=== PATIENT | female | born 1980 | race Caucasian/White ===

== ENCOUNTER 2018-05-16 07:39 | Inpatient (IN) | payer MEDICAID, OTHER ==
[2018-05-16 09:03] LABS: Basophils % (Auto) 0.4 % (0.0-1.8); Eosinophils # (Auto) 0.1 K/mm3 (0.0-0.4); Eosinophils % (Auto) 1.2 % (0.0-4.3); Hematocrit 34.8 % (30.3-42.9); Hemoglobin 11.9 gm/dl (10.1-14.3); Lymphocytes % (Auto) 27.4 % (13.4-35.0); Mean Corpuscular HGB Conc 34 % (30-34); Mean Corpuscular Volume 88 fl (79-97); Monocytes # (Auto) 0.4 K/mm3 (0.0-0.8); Monocytes % (Auto) 5.7 % (0.0-7.3); Platelet Count 173 K/mm3 (140-440); Red Blood Count 3.96 M/mm3 (3.65-5.03); Red Cell Distribution Width 15.2 % (13.2-15.2)
[2018-05-16] MEDS ORDERED: SUBLIMAZE IV PRN (10:26)
[2018-05-16] MEDS ORDERED: NARCAN 0.4 MG/1 ML IV PRN (10:26)
[2018-05-16] MEDS ORDERED: BRETHINE IVP PRN (10:26)
[2018-05-16] MEDS ORDERED: XYLOCAINE 2% INFILTRATI ONE (10:26)
[2018-05-16] MEDS ORDERED: ZOFRAN IV PRN ×2 (10:26→12:53)
[2018-05-16] MEDS ORDERED: BRETHINE SUB-Q PRN (10:26)
--- NOTE | 2018-05-16 10:36 | History and Physical Report ---
History of Present Illness Date of examination: 05/16/18 Date of admission: 05/16/18 09:14 Chief complaint: Intense labor pains History of present illness: 37 yo Fe , ALEENA 05/21/2018, 39weeks 2 days (US) presents with intense labor pains in active labor. Pt initiated early care with [facility] at 11+ weeks (Records available for review). risk include AMA, Anemia (FeS04 BID), and maternal obesity. She is O positive, rubella Immune, GBS Negative. Past History Past Medical History: no pertinent history Past Surgical History: D&C (2012: [facility] ) [employer] [employer] History: denies: abnormal PAP smear, chlamydia, gonorrhea, hepatitis B, hepatitis C, herpes, HIV, syphilis, trichomonas Family/Genetic History: none Social history: no significant social history, single, lives with family, full code. denies: smoking, alcohol abuse, prescription drug abuse, IV drug use - Obstetrical History Expected Date of Delivery: 05/21/18 Actual Gestation: 39 Week(s) 2 Day(s) : 5 Para: 3 Hx # Term Pregnancies: 3 Number of Pregnancies: 0 Spontaneous Abortions: 0 Induced : 0 ([facility] in 2011 (D&C)) Number of Living Children: 3 #1 Infant Gender: Male year: 2,005 Birthweight: 2.268 kg Method of Delivery: Vaginal Gestational age at delivery: 40 Complications: none #2 Infant Gender: Female year: 2,009 Birthweight: 3.629 kg Method of Delivery: Vaginal Gestational age at delivery: 40 Complications: none #3 Infant Gender: Female year: 2,011 Birthweight: 3.629 kg Method of Delivery: Vaginal Gestational age at delivery: 40 Complications: none Medications and Allergies Allergies Allergy/AdvReac Type Severity Reaction Status Date / Time No Known Allergies Allergy Unverified 05/13/18 03:14 Home Medications Medication Instructions Recorded Confirmed Last Taken Type No Known Home Medications [No 05/16/18 05/16/18 Unknown History Reported Home Medications] Review of Systems Cardiovascular: no chest pain, no shortness of breath Respiratory: no shortness of breath Breasts: normal Gastrointestinal: no nausea, no vomiting, no diarrhea, no constipation Genitourinary: normal appearance, contractions, no vaginal bleeding, no leakage of fluid, no genital sores Integumentary: no rash, no sores, no lesions - Vital Signs Vital signs: Vital Signs Pulse BP 81 104/68 05/16/18 07:52 05/16/18 07:52 Temp Pulse Resp BP Pulse Ox 98.5 F 83 18 100/66 98 05/16/18 08:00 05/16/18 08:43 05/16/18 08:00 05/16/18 08:22 05/16/18 08:43 - Physical Exam Breasts: Positive: normal Cardiovascular: Regular rate, Normal S1, Normal S2, No murmurs Lungs: Positive: Clear to auscultation, Normal air movement Abdomen: Positive: normal appearance, soft. Negative: distention Genitourinary (Female): Positive: normal external genitalia, normal perenium Vulva: both: normal Vagina: Positive: normal moisture Uterus: Positive: enlarged (S=D) Anus/Rectum: Positive: normal perianal skin Extremities: Positive: normal Deep Tendon Reflex Grade: Normal +2 - Obstetrical FHR: auscultation normal, category 1 Uterine Contraction Monitor Mode: External Cervical Dilatation: 6 (AROM, lg amt clear fluid) Cervical Effacement Percentage: 75 station: -1 Uterine Contraction Frequency (min): q 5 min Uterine Contraction Duration: 90-110 Uterine Contraction Pattern: Regular Uterine Tone Measurement Phase: Resting Uterine Contraction Intensity: Moderate Results Result Diagrams: 05/16/18 08:50 All other labs normal. Assessment and Plan A: AMA 37yo Term IUP at 39w2d Active labor Category 1 tracing GBS Negative P: Admit to L&D; Routine orders Pitocin Augmentation May have IV pain med/epidural if desires Anticipate
[2018-05-16] MEDS ORDERED: PITOCin/NS 20 UNIT/1000ML DRIP 20 UNITS/1,000 ML BAG IV SCH (11:00)
[2018-05-16] MEDS ORDERED: LACTATED RINGERS 1,000 ML IV SCH (11:00)
[2018-05-16] MEDS ORDERED: PITOCin/NS 30 UNIT/500ML 30 UNITS/500 ML BAG IV SCH (11:00)
[2018-05-16] MEDS ORDERED: NORCO 5/325 PO PRN (12:53)
[2018-05-16] MEDS ORDERED: DULCOLAX PR PRN (12:53)
[2018-05-16] MEDS ORDERED: TYLENOL PO PRN (12:53)
[2018-05-16] MEDS ORDERED: MILK OF MAGNESIA PO PRN (12:53)
[2018-05-16] MEDS ORDERED: TUCKS PAD TP PRN (12:53)
[2018-05-16] MEDS ORDERED: LANSINOH TP PRN (12:53)
[2018-05-16] MEDS ORDERED: BENADRYL PO PRN (12:53)
[2018-05-16] MEDS ORDERED: SODIUM CHLORIDE FLUSH SYRINGE 10 ML IV NR (13:00)
--- NOTE | 2018-05-16 13:10 | Procedure Note ---
OB Delivery Note - Delivery Date of Delivery: 05/16/18 (11:42) Surgeon: NARGIS WHITING (IZABELA) Estimated blood loss: 200cc - Vaginal Delivery presentation: vertex Delivery position: OA Intrapartum events: none Delivery induction: none Delivery augmentation: rupture of membranes, pitocin Delivery monitor: external FHT, external uterine Route of delivery: (11:42) Delivery placenta: spontaneous (11:46) Delivery cord: 3 umbilical vessels Delivery laceration: none Anesthesia: intravenous (Fentanyl x 1 dose) Delivery comments: To room immediately following nurse delivery of viable female at 11:42. [id number] on mothers abdomen upon entering room. Strong lusty cry noted. Cord clamped then cut by FOB with guidance. Cord blood collected per protocol. Spontaneous velazquez delivery of intact placenta at 11:46. Fundus massaged Firm@U-2. Perineum inspected. No tears or lacerations. Bleeding small. and mother left in stable condition in L&D. EBL 200ml. Placenta discarded. - A at 1 minute: 8 at 5 minutes: 9 Gender: Female (3792 grams, 8lbs 6oz, 20")
[2018-05-16] MEDS: IBUPROFEN PO SCH ×2 (15:17→23:52)
[2018-05-17 01:32] LABS: Hematocrit 31.5 % (30.3-42.9); Hemoglobin 10.5 gm/dl (10.1-14.3)
[2018-05-17] MEDS: IBUPROFEN PO SCH ×4 (05:56→23:48)
[2018-05-17] MEDS ORDERED: FEOSOL PO ONE (09:48)
--- NOTE | 2018-05-17 09:48 | Progress Note ---
Assessment and Plan A: PPD#1 s/p Mild Anemia P: Iron therapy supplementation Anticipate Discharge tomorrow LIANNE Cheng/Ni Pollock CNM Subjective - Subjective Date of service: 05/17/18 Principal diagnosis: PPD#1 s/p Patient reports: appetite normal, voiding normally, ambulating normally, no dizzy ambulation, no flatus, no bowel movement, no nauseated : doing well Objective - Vital Signs Latest vital signs: Vital Signs Temp Pulse Resp BP BP Pulse Ox 05/17/18 08:18 97.9 F 69 20 93/55 05/17/18 01:04 98.2 F 73 18 86/47 98 05/16/18 21:08 98.7 F 69 18 98/59 99 05/16/18 16:25 98.2 F 80 18 99/49 05/16/18 12:34 75 123/77 05/16/18 12:18 66 120/81 05/16/18 12:03 75 107/66 05/16/18 11:48 75 110/66 05/16/18 11:33 75 110/66 Intake and Output 05/16/18 05/17/18 05/17/18 23:59 07:59 15:59 Intake Total 120 240 120 Output Total 550 400 Balance -430 -160 120 Intake: Oral 120 240 120 Output: Urine 550 400 Void 550 400 Other: Total, Intake Amount 120 240 120 Total, Output Amount 400 400 # Voids Void 1 1 - Exam Cardiovascular: Present: Regular rate, Normal S1, Normal S2 Lungs: Present: Clear to auscultation, Normal air movement Abdomen: Present: normal appearance, soft, normal bowel sounds. Absent: distention, tenderness, guarding Uterus: Present: normal, firm, fundal height below umbilicus Extremities: Present: normal
[2018-05-18] MEDS: IBUPROFEN PO SCH ×2 (05:15→11:28)
--- NOTE | 2018-05-18 09:51 | Progress Note ---
Assessment and Plan A: PPD#2 s/p Mild Anemia P: Discharge home today. discharge instructions and warning signs discussed with patient. Advised to avoid intercourse, heavy lifting, driving, tub baths. Advised patient to followup at [facility] in 6 weeks for exam. Prescription for the following called in to [facility] on [address]: Motrin 800 mg, #30, 1 PO every 8 hours prn for pain; ferrous sulfate 325mg #60 1 PO BID. Patient voiced understanding of instructions. LIANNE Cheng/Ni Pollock CNM Subjective - Subjective Date of service: 05/18/18 Principal diagnosis: PPD#2 s/p Patient reports: appetite normal, voiding normally, pain well controlled, ambulating normally, no dizzy ambulation, no nauseated : doing well Objective - Vital Signs Latest vital signs: Vital Signs Temp Pulse Resp BP BP Pulse Ox 05/18/18 09:29 98.2 F 72 18 100/64 05/17/18 23:49 97.8 F 77 18 93/61 99 05/17/18 20:18 18 05/17/18 16:25 98 F 73 20 107/72 Intake and Output 05/17/18 05/18/18 05/18/18 23:59 07:59 15:59 Intake Total 480 120 120 Output Total 400 Balance 80 120 120 Intake: Oral 480 120 120 Output: Urine 400 Void 400 Other: Total, Intake Amount 120 120 120 Total, Output Amount 400 # Voids Void 1 1 - Exam Cardiovascular: Present: Regular rate, Normal S1, Normal S2 Lungs: Present: Clear to auscultation, Normal air movement Abdomen: Present: normal appearance, soft, normal bowel sounds. Absent: tenderness, guarding Uterus: Present: normal, firm, fundal height below umbilicus Extremities: Present: normal. Absent: tenderness, edema
--- NOTE | 2018-05-18 09:54 | Discharge Summary ---
Providers - Providers Date of Admission: 05/16/18 09:14 Date of discharge: 05/18/18 Attending physician: CATHI BRAVO MD Primary care physician: CATHI BRAVO MD Hospitalization Reason for admission: active labor, IUP at term Delivery: Episiotomy: none Laceration: none Other procedures: none complications: none Discharge diagnosis: IUP at term delivered [place] baby: female Pertinent studies: labs Hospital course: Normal hospital course. Condition at discharge: Good Disposition: DC-01 TO HOME OR SELFCARE - Discharge Diagnoses (1) Term delivered Status: Acute Plan - Provider Discharge Summary Activity: routine, no sex for 6 weeks, no heavy lifting 4 weeks, no strenuous exercise Diet: routine Instructions: routine Additional instructions: Call your doctor immediately for: * Fever > 100.5 * Heavy vaginal bleeding ( >1 pad per hour) * Severe persistent headache * Shortness of breath * Reddened, hot, painful area to leg or breast - Follow up plan Follow up: CATHI BRAVO MD [Primary Care Provider] - 6 Weeks
[2018-05-18 12:44] VITALS: BP 111/65
== END 2018-05-18 14:15 | disposition home or self-care (01) | DRG 807 ==
LOC: TRG 07:39 → LD 09:14 → OB 14:52
PROVIDERS: ADMIT Obstetrics & Gynecology; ATTEND Obstetrics & Gynecology
PROC: 10E0XZZ Delivery of Products of Conception, External Approach (ICD-10-PCS; principal; 2018-05-16)
DX: O99.214 Obesity complicating childbirth (principal); Z37.0 Single live birth; E66.9 Obesity, unspecified; O99.02 Anemia complicating childbirth; Z3A.39 39 weeks gestation of pregnancy
CPT/HCPCS: 36415; 85014; 85018; 85025; 86592; 86850; 86900; 86901; G0378; J2590; J3010; J7120

== ENCOUNTER 2020-07-20 12:20 | Inpatient (IN) | payer MEDICAID, OTHER ==
[2020-07-20 13:21] LABS: Bilirubin,Urine NEG (Negative); Blood,Urine NEG (Negative); Color,Urine Yellow (Yellow); Mucus,Urine FEW /HPF; Protein,Urine <15 mg/dL mg/dL (Negative); Urobilinogen,Urine < 2.0 mg/dL (<2.0)
[2020-07-20] MEDS: LACTATED RINGERS 1,000 ML IV SCH ×2 (13:25→15:40)
[2020-07-20 15:26] LABS: Hematocrit 36.1 % (30.3-42.9); Hemoglobin 12.3 gm/dl (10.1-14.3); Mean Corpuscular HGB Conc 34 % (30-34); Mean Corpuscular Volume 91 fl (79-97); Platelet Count 193 K/mm3 (140-440); Red Blood Count 3.99 M/mm3 (3.65-5.03); Red Cell Distribution Width 15.2 % (13.2-15.2)
[2020-07-20] MEDS ORDERED: AMPICILLIN/NS 2 GM/100 ML 2 GM/100 ML BAG IV SCH (15:30)
[2020-07-20] MEDS ORDERED: LIDOCAINE (2%) 20 MG/1 ML VIAL 20 ML MDV INFILTRATI NR (15:37)
[2020-07-20] MEDS ORDERED: ePHEDrine SULFATE 50 MG/1 ML INJ IV PRN (15:37)
[2020-07-20] MEDS ORDERED: BUTORPHANOL 2 MG/1 ML INJ IV PRN (16:00)
[2020-07-20] MEDS ORDERED: ACETAMINOPHEN 325 MG TAB PO PRN (16:00)
[2020-07-20] MEDS ORDERED: OXYTOCIN DRIP 30 UNITS/500 ML BAG IV SCH ×2 (16:00)
[2020-07-20] MEDS ORDERED: TERBUTALINE 1 MG/1 ML INJ SUB-Q PRN (16:00)
[2020-07-20] MEDS ORDERED: LACTATED RINGERS 1,000 ML IV SCH (16:00)
--- NOTE | 2020-07-20 16:10 | History and Physical Report ---
History of Present Illness Date of examination: 07/20/20 Date of admission: 07/20/2020 Chief complaint: I'm having contractions History of present illness: Pt is a 39 year old who presents with complaint of contractions at 39 weeks. Pt receives care with [facility]. Per patient record, fundal height has been larger than dates since 26 weeks. Pt fht showed minimal variability and patient complained of consistent pain. Decision made to admit patient for labor augmentation. Past History Past Medical History: no pertinent history Past Surgical History: no surgical history Social history: - Obstetrical History Expected Date of Delivery: 07/27/20 Actual Gestation: 39 Week(s) 0 Day(s) : 6 Para: 4 Number of Living Children: 4 Medications and Allergies Allergies Allergy/AdvReac Type Severity Reaction Status Date / Time No Known Allergies Allergy Unverified 05/13/18 03:14 Home Medications Medication Instructions Recorded Confirmed Last Taken Type No Known Home Medications [No 05/16/18 05/16/18 Unknown History Reported Home Medications] Active Meds: Active Medications Acetaminophen (Acetaminophen 325 Mg Tab) 650 mg PO Q4H PRN PRN Reason: Pain, Mild (1-3) Butorphanol Tartrate (Butorphanol 2 Mg/1 Ml Inj) 2 mg IV Q2H PRN PRN Reason: Pain , Severe (7-10) Ephedrine Sulfate (Ephedrine Sulfate 50 Mg/1 Ml Inj) 10 mg IV Q2M PRN PRN Reason: Hypotension Ampicillin Sodium (Ampicillin/Ns 2 Gm/100 Ml) 2 gm in 100 mls @ 100 mls/hr IV ONCE BRI; Protocol Stop: 07/20/20 18:00 Last Admin: 07/20/20 15:40 Dose: 100 mls/hr Documented by: Oxytocin/Sodium Chloride (Pitocin/Ns 30 Unit/500ml) 30 units in 500 mls @ 2 mls/hr IV TITR BRI; Protocol Lactated Ringer's (Lactated Ringers) 1,000 mls @ 125 mls/hr IV DIRECT BRI Oxytocin/Sodium Chloride (Pitocin/Ns 30 Unit/500ml) 30 units in 500 mls @ 40 mls/hr IV TITR BRI; Protocol Ampicillin Sodium (Ampicillin/Ns 1 Gm/50 Ml) 1 gm in 50 mls @ 100 mls/hr IV Q4H BRI; Protocol Lidocaine (Lidocaine (2%) 20 Mg/1 Ml Vial 20 Ml Mdv) 20 ml INFILTRATI ONCE NR Stop: 07/20/20 17:00 Mineral Oil (Mineral Oil 30 Ml Oral Liqd) 30 ml PO QHS PRN PRN Reason: Constipation Terbutaline Sulfate (Terbutaline 1 Mg/1 Ml Inj) 0.25 mg SUB-Q ONCE PRN PRN Reason: Hyperstimulation/Hypertonicity Review of Systems All systems: negative Constitutional: fatigue Breasts: deferred Genitourinary: contractions - Vital Signs Vital signs: Vital Signs Temp Pulse Resp BP 98.8 F 85 20 119/75 07/20/20 12:35 07/20/20 12:35 07/20/20 12:35 07/20/20 12:35 Temp Pulse Resp BP Pulse Ox 98.8 F 78 20 112/68 99 07/20/20 12:35 07/20/20 15:34 07/20/20 12:35 07/20/20 15:34 07/20/20 15:19 - Physical Exam Breasts: Cardiovascular: Regular rate, Normal S1, Normal S2 Lungs: Positive: Clear to auscultation, Normal air movement Abdomen: Positive: normal appearance, soft, normal bowel sounds. Negative: distention, tenderness Genitourinary (Female): Positive: normal external genitalia, normal perenium Vulva: both: normal Vagina: Positive: normal moisture. Negative: discharge Cervix: Negative: lesion, discharge Uterus: Positive: normal size, normal contour Adnexa: both: normal Anus/Rectum: Positive: normal perianal skin, heme negative. Negative: rectal mass, hemorrhoids Extremities: Deep Tendon Reflex Grade: Normal +2 - Obstetrical FHR: auscultation normal Cervical Dilatation: 6 Cervical Effacement Percentage: 60 station: -3 Uterine Contraction Frequency (min): 7 Uterine Contraction Pattern: Irregular Uterine Tone Measurement Phase: Resting Uterine Contraction Intensity: Moderate Results Result Diagrams: 07/20/20 10:00 All other labs normal. Assessment and Plan IUP at 39 weeks as walk in patient with contractions and nonreactive heart tracing. DEcision made to admit for labor augmentation. AROM. Treat for GBS unknown. Anticipate .
[2020-07-20] MEDS ORDERED: fentaNYL 100 MCG/2 ML INJ ONE (17:30)
[2020-07-20] MEDS ORDERED: fentaNYL 100 MCG/2 ML INJ IV ONE (17:37)
[2020-07-20 18:11] LABS: Hematocrit 35.1 % (30.3-42.9); Hemoglobin 11.9 gm/dl (10.1-14.3)
[2020-07-20] MEDS ORDERED: LANOLIN/ZINC/DIMETHICONE (LANSINOH) 7 GM TP PRN (18:20)
[2020-07-20] MEDS ORDERED: ONDANSETRON 4 MG/2 ML INJ IV PRN (18:20)
[2020-07-20] MEDS ORDERED: PROMETHAZINE 25 MG TAB PO PRN (18:20)
[2020-07-20] MEDS ORDERED: WITCH HAZEL/ GLYCERIN PAD TP PRN (18:20)
[2020-07-20] MEDS ORDERED: diphenhydrAMINE 25 MG CAP PO PRN (18:20)
[2020-07-20] MEDS ORDERED: PROMETHAZINE 25 MG RECT SUPP PR PRN (18:20)
[2020-07-20] MEDS ORDERED: MAGNESIUM HYDROXIDE (MOM) ORAL LIQD UDC PO PRN (18:20)
--- NOTE | 2020-07-20 18:23 | Procedure Note ---
OB Delivery Note - Delivery Date of Delivery: 07/20/20 Surgeon: THERESA MTZ Estimated blood loss: 200cc - Vaginal Delivery presentation: vertex Delivery position: OA Intrapartum events: decreased FHT variability Delivery induction: none Delivery augmentation: rupture of membranes, pitocin Delivery monitor: external FHT, external uterine Route of delivery: Delivery placenta: spontaneous Delivery cord: 3 umbilical vessels Episiotomy: none Delivery laceration: none Anesthesia: none Delivery comments: 9 pounds 1 ounce - Infant A at 1 minute: 8 at 5 minutes: 9 Infant Gender: Female
[2020-07-20] MEDS ORDERED: AMPICILLIN/NS 1 GM/50 ML 1 GM/50 ML BAG IV SCH (19:39)
[2020-07-20] MEDS: IBUPROFEN 600 MG TAB PO SCH (20:36)
[2020-07-20] MEDS ORDERED: MINERAL OIL 30 ML ORAL LIQD PO PRN (22:00)
[2020-07-21] MEDS: DOCUSATE SODIUM 100 MG CAP PO SCH ×2 (02:15→09:49)
[2020-07-21] MEDS: IBUPROFEN 600 MG TAB PO SCH ×4 (02:39→18:14)
[2020-07-21] MEDS ORDERED: DIPHtheria,PERTUSSIS(ACELL),TETANUS VACCINE/PF 0.5 ML VIAL IM ONE (06:00)
[2020-07-21 06:35] LABS: Hemoglobin 10.8 gm/dl (10.1-14.3)
[2020-07-21] MEDS: HYDROcodone/ACETAMINOPHEN 5-325 MG TAB PO PRN ×2 (09:49→20:06)
[2020-07-21] MEDS ORDERED: FLU VACC QUAD 2020-2021 (6 months +)/PF 60 0.5 ML SYRINGE IM ONE (12:00)
[2020-07-22] MEDS: IBUPROFEN 600 MG TAB PO SCH ×3 (00:01→12:00)
[2020-07-22] MEDS: DOCUSATE SODIUM 100 MG CAP PO SCH ×2 (00:02→10:35)
--- NOTE | 2020-07-22 09:01 | Progress Note ---
Subjective - Subjective Date of service: 07/22/20 Interval history: Pt is a 39 year old who presents with complaint of contractions at 39 weeks. Pt receives care with [facility]. Per patient record, fundal height has been larger than dates since 26 weeks. Pt fht showed minimal lulú iability and patient complained of consistent pain. Decision made to admit patient for labor augmentation. Patient reports: appetite normal, voiding normally, pain well controlled, ambulating normally [place]: doing well Objective - Vital Signs Latest vital signs: Vital Signs Temp Pulse Resp BP Pulse Ox 07/22/20 01:30 97.8 F 71 18 101/58 97 07/21/20 16:45 98.2 F 81 18 111/62 98 Intake and Output 07/21/20 07/22/20 07/22/20 22:59 06:59 14:59 Intake Total 360 Balance 360 Intake: Oral 360 Other: Total, Intake Amount 120 # Voids Void 1
--- NOTE | 2020-07-22 09:02 | Discharge Summary ---
Providers - Providers Date of Admission: 07/20/20 16:19 Date of discharge: 07/22/20 Attending physician: THERESA MTZ Primary care physician: CATHI BRAVO MD Hospitalization Reason for admission: active labor Delivery: Episiotomy: none Laceration: none complications: other (rash) Discharge diagnosis: IUP at term delivered baby: female Hospital course: unremarkable Condition at discharge: Good Disposition: DC-01 TO HOME OR SELFCARE Plan - Provider Discharge Summary Activity: routine, no sex for 6 weeks, no heavy lifting 4 weeks, no strenuous exercise Diet: routine Instructions: routine Additional instructions: [] Smoking cessation referral if applicable(refer to patient education folder for contact #) [] Refer to [facility] Call your doctor immediately for: * Fever > 100.5 * Heavy vaginal bleeding ( >1 pad per hour) * Severe persistent headache * Shortness of breath * Reddened, hot, painful area to leg or breast * Drainage or odor from incision. * Keep incision clean and dry at all times and follow doctor's instructions regarding bathing/showering - Follow up plan Follow up: THERESA MTZ MD [Staff Physician] - 6 Weeks
[2020-07-22 16:56] VITALS: BP 105/62
== END 2020-07-22 17:25 | disposition home or self-care (01) | DRG 807 ==
LOC: TRG 12:20 → APU 12:22 → LD 14:54 → APU 14:59 → TRG 16:17 → LD 16:19 → OB 20:55
PROVIDERS: ADMIT Obstetrics & Gynecology; ATTEND Obstetrics & Gynecology
PROC: 10E0XZZ Delivery of Products of Conception, External Approach (ICD-10-PCS; principal; 2020-07-20)
PROC: 3E0234Z Introduction of Serum, Toxoid and Vaccine into Muscle, Percutaneous Approach (ICD-10-PCS; 2020-07-21)
DX: O80 Encounter for full-term uncomplicated delivery (principal); Z37.0 Single live birth; Z3A.39 39 weeks gestation of pregnancy; Z20.822 Contact with and (suspected) exposure to COVID-19
CPT/HCPCS: 36415; 59025; 81001; 85014; 85018; 85027; 86592; 86850; 86900; 86901; 90471; 90686; 90715; 96360; G0378; G0008; J0290; J2590; J3010; J7120; U0003